=== PATIENT | female | born 1975 | race Caucasian/White ===

== ENCOUNTER 2017-07-16 15:08 | Outpatient (CLI) | payer BC ==
[2017-07-16 15:30] VITALS: BP 122/69
== END 2017-07-16 16:10 | disposition home or self-care (01) ==
LOC: LDRP-OP 15:08 → 2WEST 15:09 → LDRP-OP 08-09 14:49
DX: O47.1 False labor at or after 37 completed weeks of gestation (principal); Z3A.41 41 weeks gestation of pregnancy
CPT/HCPCS: 59025; G0378

== ENCOUNTER 2017-07-20 11:19 | Inpatient (IN) | payer BC ==
[~2017-07-20] VITALS: Ht 162.6 cm; Wt 90.0 kg
[2017-07-20] VITALS (16 sets, daily range): BP systolic 107–134; BP diastolic 53–76
[2017-07-20 13:18] LABS: EOSINOPHIL (%) 0.1 % (0-5); HEMATOCRIT 33.2 % (36.0-46.0); IMMATURE GRANULOCYTE (%) 2.1 % (0.0-0.7); IMMATURE GRANULOCYTE COUNT 0.2 K/uL; LYMPHOCYTE COUNT 1.1 K/uL (1.0-2.8); MCH 31.2 PG (29.0-34.0); MCHC 33.1 G/DL (30.0-36.0); MCV 94.1 FL (83-99); MEAN PLAT.VOLUME 10.3 uM^3 (9.5-12.4); MONOCYTE (%) 7.2 % (3-12); MONOCYTE COUNT 0.6 K/uL (0-0.8); NEUTROPHIL (%) 76.6 % (45-76); PLATELET COUNT 174 K/uL (156-360); RBC DIS.WIDTH-CV 13.2 % (11.8-14.6); RBC DIS.WIDTH-SD 45.2 % (39-53); RED BLOOD COUNT 3.53 M/uL (3.80-5.20); WHITE BLOOD COUNT 7.8 K/uL (4.1-10.2)
[2017-07-21] VITALS (34 sets, daily range): BP systolic 98–144; BP diastolic 48–84
[2017-07-21] MEDS ORDERED: IBUPROFEN800 MG PO (20:06)
[2017-07-21] MEDS ORDERED: PRENATAL TABLE1 EAC3 PO (20:06)
[2017-07-21] MEDS ORDERED: ENDOCET 5-3251 EACH PO (20:06)
[2017-07-22] VITALS (8 sets, daily range): BP systolic 103–125; BP diastolic 51–62
[2017-07-22 07:33] LABS: EOSINOPHIL (%) 0 % (0-5); HEMATOCRIT 27.6 % (36.0-46.0); IMMATURE GRANULOCYTE (%) 0.9 % (0.0-0.7); IMMATURE GRANULOCYTE COUNT 0.1 K/uL; INSTRUMENT ABS NEUTROPHIL CT 9.7 K/uL; MCH 31.5 PG (29.0-34.0); MCV 95.5 FL (83-99); MONOCYTE COUNT 0.7 K/uL (0-0.8); NEUTROPHIL (%) 84.6 % (45-76); NEUTROPHIL COUNT 9.7 K/uL (1.8-6.4); PLATELET COUNT 157 K/uL (156-360); RBC DIS.WIDTH-CV 13.3 % (11.8-14.6); RED BLOOD COUNT 2.89 M/uL (3.80-5.20); WHITE BLOOD COUNT 11.5 K/uL (4.1-10.2)
[2017-07-23 02:55] VITALS: BP 131/65
[2017-07-23 07:35] VITALS: BP 131/62
[2017-07-23] MEDS ORDERED: FERROUS SULFAT325 MG PO (09:23)
[2017-07-23 10:53] VITALS: BP 131/67
[2017-07-23 15:39] VITALS: BP 137/69
[2017-07-23 22:09] VITALS: BP 132/64
[2017-07-24 08:41] VITALS: BP 134/77
== END 2017-07-24 17:15 | disposition home or self-care (01) | DRG 765 ==
LOC: LDRP-OP 11:19 → 2WEST 11:20 → LDRP-OP 08-09 18:22
PROVIDERS: Midwife; Obstetrics & Gynecology
PROC: 3E0P7GC Introduction of Other Therapeutic Substance into Female Reproductive, Via Natural or Artificial Opening (ICD-10-PCS; principal; 2017-07-20)
PROC: 10D00Z1 Extraction of Products of Conception, Low, Open Approach (ICD-10-PCS; 2017-07-21)
PROC: 10907ZC Drainage of Amniotic Fluid, Therapeutic from Products of Conception, Via Natural or Artificial Opening (ICD-10-PCS; 2017-07-21)
PROC: 00HU33Z Insertion of Infusion Device into Spinal Canal, Percutaneous Approach (ICD-10-PCS; 2017-07-21)
PROC: 3E0E7GC Introduction of Other Therapeutic Substance into Products of Conception, Via Natural or Artificial Opening (ICD-10-PCS; 2017-07-21)
PROC: 3E0R3CZ (ICD-10-PCS; 2017-07-21)
DX: O76 Abnormality in fetal heart rate and rhythm complicating labor and delivery (principal); O64.0XX0 Obstructed labor due to incomplete rotation of fetal head, not applicable or unspecified; O77.0 Labor and delivery complicated by meconium in amniotic fluid; O41.03X0 Oligohydramnios, third trimester, not applicable or unspecified; O69.81X0 Labor and delivery complicated by cord around neck, without compression, not applicable or unspecified; O48.0 Post-term pregnancy; O26.03 Excessive weight gain in pregnancy, third trimester; O99.02 Anemia complicating childbirth; D50.9 Iron deficiency anemia, unspecified; Z3A.41 41 weeks gestation of pregnancy; Z37.0 Single live birth
CPT/HCPCS: 85025; 86900; 86901; C1726; C1755; G0378; J0595; J0690; J1100; J1885; J2175; J2274; J2405; J2590; J7120